=== PATIENT | male | born 1990 | race Caucasian/White ===

== ENCOUNTER 2018-04-30 11:10 | Emergency (ER) | payer OTHER, BC ==
[2018-04-30] MEDS ORDERED: LIDOCAINE 1% W/EPI MPF 30 ML SOL ONE (11:26)
[2018-04-30 11:28] VITALS: RESP 18; TEMP 97.8
[2018-04-30] MEDS ORDERED: LIDOCAINE 1% W/EPI MPF 30 ML SOL SC ONE (11:30)
[2018-04-30] MEDS ORDERED: TDAP VACCINE 0.5 ML SUS IM ONE ×2 (11:34→11:37)
[2018-04-30] MEDS ORDERED: CEFTRIAXONE 1 GM PDS IM ONE (11:34)
[2018-04-30] MEDS ORDERED: LIDOCAINE HCL 1% MPF 30 SOL ONE (11:37)
[2018-04-30] MEDS ORDERED: CEFTRIAXONE 1 GM PDS ONE (11:37)
[2018-04-30] MEDS ORDERED: BACITRACIN 500 U/GM OIN TOP ONE ×2 (12:04→12:15)
[2018-04-30 14:21] VITALS: BP 134/88; PULSE 96; O2SAT 100
== END 2018-04-30 12:36 | disposition home or self-care (01) | DRG 605 ==
LOC: ED 11:10
DX: S61.012A Laceration without foreign body of left thumb without damage to nail, initial encounter (principal)
CPT/HCPCS: 12002; 90471; 90715; 96372; 99284; J0696; A6402; A9270-GY; J2001